=== PATIENT | female | born 1990 | race Caucasian/White ===

== ENCOUNTER 2023-09-20 19:07 | Emergency (ER) | payer BC ==
[~2023-09-20] VITALS: Ht 170.2 cm; Wt 113.6 kg
[~2023-09-20 19:07] MED LIST: ACETAMINOPHEN W1 TA6 PO; DROSPIRENONE PO; PERCOCET 500 MG1 TAB PO
[2023-09-20 19:14] VITALS: TEMP 98.1
[2023-09-20 21:20] VITALS: BP 107/60; PULSE 89
== END 2023-09-20 21:20 | disposition home or self-care (01) ==
LOC: COL.ER 19:07
DX: L50.9 Urticaria, unspecified (principal)
CPT/HCPCS: J1200